=== PATIENT | female | born 1985 | race Two or more races ===

== ENCOUNTER 2024-10-13 14:25 | Emergency (ER) | payer OTHER, SELFPAY ==
[2024-10-13 15:00] VITALS: PULSE 70; RESP 20; O2SAT 97; BMI 31.1
[2024-10-13 15:05] VITALS: BP 131/87; PULSE 74; RESP 16; O2SAT 98
--- NOTE | 2024-10-13 15:13 | PC.NURSE ---
PATIENT ARRIVED ED VIA EMS WITH COMPLAINT OF MID BACK PAIN RADIATING DOWN RIGHT LEG. PATIENT STATES SHE WAS PUSHING A WHEELCHAIR WHEN SHE FELT A POP IN HER BACK AND HAD INSTANT PAIN RUNNING DOWN THE LEG. UPON ARRIVAL PATIENT WITH COMPLAINT OF 7/10 ON PAIN SCALE. PATIENT WAS GIVEN 1000MG TYLENOL ENROUTE WITH MINIMAL PAIN RELIEF. PATIENT PLACE ON [facility] AND CARE WAS ASSUMED. CALL LIGHT WITHIN REACH AND INSTRUCTIONS GIVEN AND UNDERSTOOD.
--- NOTE | 2024-10-13 15:26 | PD.EDBACK ---
ED Back Injury Pain RME/HPI General Chief Complaint: Back Pain/Injury Stated Complaint: BACK PAIN, WORK INJURY Time Seen by Provider: 10/13/24 14:30 Source: patient and EMS Arrival date/time: 10/13/24 14:25 Mode of arrival: EMS Limitations: no limitations RME / HPI RME / HPI Narrative: 39-year-old female who developed right low back pain and was brought in by EMS. 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 She has no distal paresthesias. No changes in urination or bowel movements. No rectal paresthesias. She received acetaminophen and Route. She denies any chronic medical conditions. She has no allergies. She has no other acute complaints or concerns. Related Data Home Medications ?Medication ?Instructions ?Recorded ?Confirmed vit no.95-ferrous 1 tab PO QDAY 07/09/20 12/22/20 fumarate 28 mg-folic acid 800 mcg tablet () acetaminophen 325 mg tablet 325 mg PO QID PRN Pain 12/22/20 12/22/20 (Tylenol) Previous Rx's ?Medication ?Instructions ?Recorded ibuprofen 800 mg tablet 800 mg PO Q8H PRN pain #30 tabs 12/22/20 vits,calcium 21-iron fum 1 tab PO DAILY 12 months #90 tabs 12/23/20 14 mg iron-folic acid 400 mcg tablet ( Complete) methocarbamol 750 mg tablet 750 mg PO TID #20 tabs 10/13/24 naproxen 500 mg tablet 500 mg PO BID #14 tabs 10/13/24 Allergies Allergy/AdvReac Type Severity Reaction Status Date / Time No Known Allergies Allergy Verified 07/09/20 14:05 Review of Systems Review of Systems Systems Reviewed: All systems reviewed, normal except as documented ED Exam General Limitations: Present no limitations General appearance: Present alert and in no apparent distress Head Head exam: Present atraumatic Eye Eye exam: Present normal appearance, PERRL and EOMI ENT ENT exam: Present normal exam, normal oropharynx and mucous membranes moist Neck Neck exam: Present normal inspection, full ROM and trachea midline Chest Chest inspection: Present normal inspection and symmetric chest wall rise Respiratory Respiratory exam: Present normal lung sounds bilaterally Cardiovascular Cardiovascular exam: Present regular rate, normal rhythm and normal heart sounds Abdominal Exam Abdominal exam: Present soft and normal bowel sounds Extremities Exam Extremities exam: Present other (Patient is able to perform straight leg raises bilaterally with discomfort on the right. She has distal sensation.) Back Exam Back exam: Present normal inspection and full ROM Neurological Exam Neurological exam: Present alert, oriented X3 and other Psychiatric Psychiatric exam: Present normal affect and normal mood Skin Skin exam: Present warm, dry, intact and normal color Course Quality Measures none Orders Category Date Time Status Diazepam Inj [Valium Inj] Med 10/13/24 15:20 Discontinued 2 mg IVP X1 ONE Morphine Inj Med 10/13/24 15:20 Discontinued 2 mg IVP X1 ONE Vital Signs Vital signs: Vital Signs Pulse Rate 74 10/13/24 15:05 Respiratory Rate 16 10/13/24 15:05 Blood Pressure 131/87 H 10/13/24 15:05 Pulse Oximetry (%) 98 10/13/24 15:05 Oxygen Delivery Method Room Air 10/13/24 15:05 Back Pain / Injury MDM Narrative MDM Narrative:: 39-year-old female who developed right low back pain and was brought in by EMS. 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 She has no distal paresthesias. No changes in urination or bowel movements. No rectal paresthesias. She received acetaminophen and Route. She denies any chronic medical conditions. She has no allergies. She has no other acute complaints or concerns. On exam patient is uncomfortable appearing. She is tender in her right iliolumbar region. She is able to elevate both of her legs with discomfort. She was given a dose of Valium and morphine here. She was able to self ambulate in the emergency room. I do believe she be discharged from the ER for outpatient follow-up. She is discharged with a prescription of naproxen and Robaxin. We discussed return precautions and red flags. She is to return as needed for any worsening emergent change otherwise follow-up with her primary doctor or occupational health. Patient data External records reviewed:: EMS form Clinical information provided by:: patient Social determinants that could affect healthcare access:: none Patient has the following chronic illnesses:: n/a How is presenting disease/condition affected by chronic disease/condition?: no chronic disease Evaluation data The following diagnostics were reviewed and interpreted by me:: other (specify) (n/a) Lab and/or radiology exams considered but not ordered:: n/a Interpretation Summary: n/a Medications / Prescriptions Medications or Prescriptions considered but not ordered:: n/a Medication administrations:: Medication Administration History Discontinued Medications Diazepam (Diazepam Inj 5 Mg/Ml Vial 2 Ml) 2 mg IVP X1 ONE Stop: 10/13/24 15:21 Last Admin: 10/13/24 15:53 Dose: 2 mg Documented By: VG Morphine Sulfate (Morphine Sulf Inj 10 Mg/Ml Vial) 2 mg IVP X1 ONE Stop: 10/13/24 15:21 Last Admin: 10/13/24 15:51 Dose: 2 mg Documented By: VG See above Consultations Consultation(s) initiated? (list below): No Diagnosis Differential diagnosis back pain/injury: sciatica, strain of lumbar region and thoracic back pain Most likely diagnosis given after review of the tests above:: Lumbar sprain Admission Indicated Admission indicated?: not indicated Admission Request Was there a request for admission?: No Disposition Plan Disposition Plan: Discharge Discharge Attestation Discharge Attestation: The patient and all family members were given an opportunity to ask questions and understood the discharge instructions. Discharge instructions specifically effects, indications for sooner follow up or return to the emergency department, and the expected course of current diagnosis. Patient condition: Stable Discharge Plan Plan Patient Disposition: HOME (Self Care) Patient condition on transfer: Stable Prescriptions/Referrals Prescriptions/Med Rec: New naproxen 500 mg tablet 500 mg PO BID Qty: 14 0RF methocarbamol 750 mg tablet 750 mg PO TID Qty: 20 0RF No Action PNV cmb#95-ferrous fumarate-FA [] 28 mg iron- 800 mcg Tablet 1 tab PO QDAY acetaminophen [Tylenol] 325 mg Tablet 325 mg PO QID PRN (Reason: Pain) ibuprofen 800 mg tablet 800 mg PO Q8H PRN (Reason: pain) Qty: 30 0RF Complete 14 mg iron- 400 mcg tablet 1 tab PO DAILY 360 Days Qty: 90 3RF Referrals: No Primary/Family,Physician [Primary Care Provider] - In 1 week Problem List Clinical Impression: Strain of lumbar region Patient/Caregiver Discharge Instructions Education Materials: ED Back Sprain/Strain Additional Instructions: - Follow-up with your primary doctor or occupational health as soon as possible - Use the provided medications for symptomatic relief. - Please return to the emergency room for any significant changes such as loss of bowel control, loss of urine control, rectal paresthesias, or increased weakness in your lower legs. Print Language: Serbian Stand Alone Forms: [employer] Award Info., Patient Portal Info Letter
[2024-10-13] MEDS: MORPHINE SULF INJ 10 MG/ML VIAL 2 MG IVP (15:51)
[2024-10-13] MEDS: DIAZEPAM INJ 5 MG/ML VIAL 2 ML 2 MG IVP (15:53)
[2024-10-13 17:06] VITALS: BP 131/87; PULSE 67; RESP 18; TEMP 37.1; O2SAT 99
== END 2024-10-13 17:07 | disposition home or self-care (01) ==
PROVIDERS: Emergency Provider Emergency Medicine
DX: S39.012A Strain of muscle, fascia and tendon of lower back, initial encounter (principal); X58.XXXA Exposure to other specified factors, initial encounter; Y99.0 Civilian activity done for income or pay
CPT/HCPCS: 96374; 96375; 99283; J2270; J3360

== ENCOUNTER → 2024-10-25 | Outpatient (CLI) | payer OTHER, SELFPAY ==
--- NOTE | 2024-10-25 09:54 | XR_ITS ---
Examination: Lumbar spine, 5 views Technique: Lumbar spine AP, lateral, coned lateral lower lumbar spine, bilateral obliques 5 views Exam date and time: October 25, 2024 0955 hours INDICATIONS: Injury to the lower back October 13, 2024, back pain FINDINGS: Satisfactory alignment lumbar vertebral bodies. No lumbar fracture. Mild disc narrowing L5-S1 IMPRESSION: No lumbar fracture. Mild disc narrowing L5-S1
== END | disposition home or self-care (01) ==
LOC: CDIM 09:38
PROVIDERS: PCP Family Medicine; Referring Provider Nurse Practitioner Family; Visit Provider Nurse Practitioner Family
DX: M48.07 Spinal stenosis, lumbosacral region (principal); S39.012A Strain of muscle, fascia and tendon of lower back, initial encounter; X58.XXXA Exposure to other specified factors, initial encounter
CPT/HCPCS: 72110

== ENCOUNTER 2024-12-02 11:05 | Day surgery (SDC) | payer MEDICAID, SELFPAY ==
[2024-12-01 14:10] VITALS: BMI 30.8
[2024-12-02] VITALS (10 sets, daily range): BP systolic 110–137; BP diastolic 63–95; PULSE 71–94; RESP 12–19; TEMP 36.3–37.1; O2SAT 98–100; BMI 21.9
[2024-12-02 11:39] LABS: HCG,Qualitative Serum Negative
[2024-12-02] MEDS: RINGERS LACTATED 1000 ML 1,000 ML 125 ML IV (11:45)
[2024-12-02] MEDS: MIDAZOLAM INJ 1 MG/ML VIAL 2 ML (ASD USE ONLY) 2 MG IVP (11:47)
[2024-12-02] MEDS: fentaNYL CIT INJ 50 mCg/ML AMP 2ML (ASD USE ONLY) IVP (11:47)
== END 2024-12-02 12:59 | disposition home or self-care (01) ==
PROVIDERS: PCP Nurse Practitioner Family; Referring Provider Internal Medicine Gastroenterology; Visit Provider Internal Medicine Gastroenterology
PROC: 0DBE8ZX Excision of Large Intestine, Via Natural or Artificial Opening Endoscopic, Diagnostic (ICD-10-PCS; CPT 45380; principal; 2024-12-02 12:00)
DX: K63.89 Other specified diseases of intestine (principal); K52.9 Noninfective gastroenteritis and colitis, unspecified; K64.8 Other hemorrhoids; K57.30 Diverticulosis of large intestine without perforation or abscess without bleeding
CPT/HCPCS: 45380; 36415; 81025; 84703; A4217; A4649; J1200; J2250; J3010; J7120